=== PATIENT | female | born 1940 | race Caucasian/White ===

== ENCOUNTER 2020-09-25 09:51 | Outpatient (CLI) | payer MEDICARE | END 2020-09-25 09:52 | disposition home or self-care (01) | LOC: CSHMAMMO 09:51 | PROVIDERS: ATTEND Advanced Practice Midwife | DX: Z13.820 Encounter for screening for osteoporosis (principal); M85.852 Other specified disorders of bone density and structure, left thigh; M85.851 Other specified disorders of bone density and structure, right thigh | CPT/HCPCS: 77080 ==

== ENCOUNTER 2022-03-04 10:11 | Outpatient (CLI) | payer MEDICARE | END 2022-03-04 10:12 | disposition home or self-care (01) | LOC: CSHMAMMO 10:11 | PROVIDERS: ATTEND Student in an Organized Health Care Education/Training Program | DX: Z12.31 Encounter for screening mammogram for malignant neoplasm of breast (principal); Z85.72 Personal history of non-Hodgkin lymphomas | CPT/HCPCS: 77063; 77067 ==

== ENCOUNTER 2023-03-02 22:10 | Emergency (ER) | payer MEDICARE ==
[2023-03-02] MEDS ORDERED: Ketorolac Tromethamine 30 MG/ML VIAL ONE (22:49)
[2023-03-02] MEDS ORDERED: Morphine 2 MG/ML VIAL ONE (22:49)
== END 2023-03-03 | disposition home or self-care (01) ==
LOC: CSHERS 22:10
DX: M54.42 Lumbago with sciatica, left side (principal)
CPT/HCPCS: 96372; 99283; J1885; J2272

== ENCOUNTER 2023-04-09 13:38 | Outpatient (CLI) | payer MEDICARE | END 2023-04-09 13:39 | disposition home or self-care (01) | LOC: CSHMAMMO 13:38 | PROVIDERS: ATTEND Student in an Organized Health Care Education/Training Program | DX: Z12.31 Encounter for screening mammogram for malignant neoplasm of breast (principal); Z85.72 Personal history of non-Hodgkin lymphomas | CPT/HCPCS: 77063; 77067 ==

== ENCOUNTER 2023-05-30 10:43 | Observation (INO) | payer MEDICARE ==
[2023-05-30 11:35] LABS: #Basophils 0.1 10x3/uL (0.0-0.2); #Eosinphils 0.1 10x3/uL (0.0-0.5); #Monocytes 0.8 10x3/uL (0.0-1.1); #Neutrophils 4.3 10x3/uL (1.5-8.4); %Basophils 0.7 % (0.0-2.0); %Eosinophils 1.4 % (0.0-6.0); %Lymphocytes 30.2 % (18.0-47.0); %Monocytes 10.5 % (0.0-10.0); %Neutrophils 56.3 % (40.0-75.0); Hematocrit 39.5 % (34.9-44.5); Hemoglobin 13.3 g/dL (12.0-15.5); Mean Corpuscular HGB CONC 33.7 g/dL (32.0-36.0); Mean Corpuscular Hemoglobin 32.4 pg (27.0-33.0); Mean Corpuscular Volume 96.3 fl (81.6-98.3); Mean Platelet Volume 10.2 fl (7.4-10.4); Platelet Count 222 10x3/uL (150-450); RBC Distribution Width 12.8 % (11.5-14.5); White Blood Cell (WBC) Count 7.6 10x3/uL (3.5-10.5)
[2023-05-30 11:43] LABS: ALT (SGPT) 26 U/L (8-55); AST (SGOT) 40 U/L (5-34); Albumin 4.5 g/dL (3.4-4.8); Alkaline Phosphatase 61 U/L (40-110); Anion Gap 18 mmol/L (10-20); BUN (Urea Nitrogen) 11 mg/dL (9.8-20.1); Bilirubin, Total 0.9 mg/dL (0.2-1.2); Calc. Creatinine Clearance 0 mL/min (70-130); Calcium 9.6 mg/dL (7.8-10.44); Carbon Dioxide 21 mmol/L (23-31); Chloride 102 mmol/L (98-107); Estimated GFR 67; Globulin 2.5 g/dL (2.4-3.5); Glucose 102 mg/dL (83-110); INR-International Normal Ratio 1.1; PTT 29.8 sec (22.0-33.0); Potassium 4.3 mmol/L (3.5-5.1); Prothrombin Time 11.4 sec (9.5-12.1); Sodium 137 mmol/L (136-145)
[2023-05-30 11:47] LABS: Troponin I Less than 0.010 ng/mL (< 0.028)
[2023-05-30 12:45] LABS: Bilirubin Neg (Negative); Blood, Urine Negative (Negative); Clarity Clear (Clear); Glucose, Urine (Dipstick) Normal (Negative); Ketone, Urine Negative (Negative); Leukocyte Negative (Negative); Nitrite Negative (Negative); Protein, Urine (Dipstick) 15 mg/dl (Neg-Trace); Urobilinogen Normal mg/dL (Less than 2)
[2023-05-30 13:04] LABS: RBC/HPF 0-3 HPF (0-3)
[2023-05-30 13:05] LABS: Bacteria/HPF Rare-Few HPF (None Seen); CAUTI Indications for Culture Fever or rigors; Squamous Epithelial 0-3 HPF (0-3); WBC/HPF 0-3 HPF (0-3)
[2023-05-30 13:06] LABS: Urine Culture Reflex No No
[2023-05-30] MEDS ORDERED: Acetaminophen 325 MG TAB PO PRN (14:23)
[2023-05-30] MEDS ORDERED: HYDROcodone/Acetaminophen 5/325 mg Tablet PO PRN (14:23)
[2023-05-30] MEDS ORDERED: diphenhydrAMINE 25 MG CAP PO PRN (20:59)
[2023-05-30] MEDS ORDERED: Rosuvastatin 10 MG TAB PO SCH (21:00)
[2023-05-30] MEDS: Gabapentin 100 MG CAP PO SCH (21:45)
[2023-05-30] MEDS: Apixaban 5 MG TAB PO SCH (21:46)
[2023-05-30] MEDS ORDERED: Polyethylene Glycol 3350 17 GM Packet PO SCH (22:00)
[2023-05-31 01:23] VITALS: BMI 23.4
[2023-05-31] MEDS ORDERED: Levothyroxine Sodium 75 MCG TAB PO SCH (06:00)
[2023-05-31] MEDS ORDERED: Polyethylene Glycol 3350 17 GM Packet PO SCH ×2 (09:00→21:00)
[2023-05-31] MEDS: Apixaban 5 MG TAB PO SCH (09:05)
[2023-05-31] MEDS: Gabapentin 100 MG CAP PO SCH (09:05)
[2023-05-31 12:34] VITALS: BP 130/75; TEMP 98.3
== END 2023-05-31 12:30 | disposition home or self-care (01) ==
LOC: CSHERS 10:43 → SUATTDRO 10:43 → CSHERHOLD 14:23 → CSHTELE 19:54
PROVIDERS: ADMIT Hospitalist; ATTEND Nurse Practitioner Acute Care
DX: R53.1 Weakness (principal); I48.0 Paroxysmal atrial fibrillation; M54.40 Lumbago with sciatica, unspecified side; M54.16 Radiculopathy, lumbar region; E78.5 Hyperlipidemia, unspecified; M35.00 Sjogren syndrome, unspecified; E87.20 Acidosis, unspecified; R55 Syncope and collapse; C85.90 Non-Hodgkin lymphoma, unspecified, unspecified site; I34.0 Nonrheumatic mitral (valve) insufficiency; Z90.49 Acquired absence of other specified parts of digestive tract; Z98.890 Other specified postprocedural states; Z79.01 Long term (current) use of anticoagulants; Z79.890 Hormone replacement therapy; Z79.899 Other long term (current) drug therapy
CPT/HCPCS: 71045; 80053; 81001; 83605; 83735; 84484; 85025; 85610; 85730; 87040; 93005; 93306; 94760; 97116; G0378 ×3; 36415

== ENCOUNTER 2024-04-12 12:54 | Outpatient (CLI) | payer MEDICARE | END 2024-04-12 12:55 | disposition home or self-care (01) | LOC: CSHMAMMO 12:54 | PROVIDERS: ATTEND Internal Medicine | DX: Z12.31 Encounter for screening mammogram for malignant neoplasm of breast (principal); Z85.72 Personal history of non-Hodgkin lymphomas | CPT/HCPCS: 77063; 77067 ==

== ENCOUNTER 2025-04-20 09:49 | Outpatient (CLI) | payer MEDICARE | END 2025-04-20 09:50 | disposition home or self-care (01) | LOC: CSHMAMMO 09:49 | PROVIDERS: ATTEND Internal Medicine | DX: Z12.31 Encounter for screening mammogram for malignant neoplasm of breast (principal); Z85.72 Personal history of non-Hodgkin lymphomas | CPT/HCPCS: 77063; 77067 ==